=== PATIENT | male | born 1975 | race Caucasian/White ===

== ENCOUNTER 2017-06-12 14:55 | Outpatient (CLI) | payer MEDICAID ==
[2017-06-12 19:18] LABS: BASOPHILS % (AUTO) 0.5 %; EOSINOPHILS % (AUTO) 2.4 %; HGB - HEMOGLOBIN 16.8 g/dL (14.0-18.0); LYMPHOCYTES % (AUTO) 22.7 %; MEAN CORPUSCULAR HEMOGLOBIN 31.3 pg (27.0-31.0); MEAN CORPUSCULAR VOLUME 92.1 fL (80.0-94.0); MEAN PLATELET VOLUME 10.5 fL (7.4-11.4); MONOCYTES % (AUTO) 6.7 %; NEUTROPHILS % (AUTO) 67.7 %; PLT - PLATELET COUNT 214 10^3/uL (130-450); RED BLOOD COUNT 5.36 10^6/uL (4.70-6.10); RED CELL DISTRIBUTION WIDTH 14.5 % (12.0-15.0); WHITE BLOOD COUNT 10.2 x10^3/uL (4.8-10.8)
[2017-06-12 19:23] LABS: ALBUMIN 4.2 g/dL (3.2-5.5); ALBUMIN/GLOBULIN RATIO 1.1 (1.0-2.2); ALKALINE PHOSPHATASE 64 IU/L (42-121); ALT ALANINE AMINOTRANSFERASE 65 IU/L (10-60); AST ASPARTATE AMINOTRANSFERASE 34 IU/L (10-42); BILIRUBIN,TOTAL 0.5 mg/dL (0.2-1.0); BUN - BLOOD UREA NITROGEN 15 mg/dL (6-20); CALCIUM 8.8 mg/dL (8.5-10.3); CARBON DIOXIDE - CO2 25 mmol/L (21-32); CHLORIDE 102 mmol/L (101-111); CHOL/HDL RATIO 5.1 (<5.0); CHOLESTEROL 107 mg/dL; GFR - MDRD 82 (>89); GLUCOSE 145 mg/dL (70-100); HDL CHOLESTEROL 21 mg/dL; LDL CHOLESTEROL,CALCULATED 39 mg/dL; LDL/HDL RATIO 1.9 (<3.6); SODIUM 135 mmol/L (135-145); TOTAL PROTEIN 7.9 g/dL (6.7-8.2); VLDL CHOLESTEROL 47 mg/dL
[2017-06-12 19:25] LABS: ABNORMAL LYMPHS % (MANUAL) 0 %
[2017-06-12 19:28] LABS: THYROID STIMULATING HORMONE 18.71 uIU/mL (0.34-5.60)
[2017-06-12 20:15] LABS: BAND NEUTROPHILS % (MANUAL) 7 %; DIFFERENTIAL COMMENT MANUAL DIFFERENTIAL; EOSINOPHILS # (MANUAL) 0.3 10^3/uL (0-0.7); LYMPHOCYTES # (MANUAL) 2.6 10^3/uL (1.5-3.5); LYMPHOCYTES % (MANUAL) 24 %; NEUTROPHILS # (MANUAL) 7.3 10^3/uL (1.5-6.6); NEUTROPHILS % (MANUAL) 65 %; PLATELET ESTIMATE, MANUAL NORMAL (130-450,000) (NORMAL); PLATELET MORPHOLOGY NORMAL APPEARANCE (NORMAL); RBC MORPHOLOGY (MULTIPLE) NORMAL APPEARANCE (NORMAL)
[2017-06-12 20:18] LABS: FREE T4 (FREE THYROXINE) 0.63 ng/dL (0.58-1.64)
== END 2017-06-12 14:56 | disposition home or self-care (01) ==
LOC: LAB.N 14:55
PROVIDERS: ATTEND Nurse Practitioner Gerontology
DX: Z13.9 Encounter for screening, unspecified (principal)
CPT/HCPCS: 36415; 80053; 80061; 83721; 84439; 84443; 85025

== ENCOUNTER 2017-07-17 11:31 | Outpatient (CLI) | payer MEDICAID ==
[2017-07-17 19:39] LABS: PSA FREE 0.22 ng/mL (0.16-2.81)
[2017-07-17 19:41] LABS: PSA TOTAL 0.61 ng/mL (0.000-2.000)
== END 2017-07-17 11:32 ==
LOC: LAB.N 11:31
PROVIDERS: ATTEND Nurse Practitioner Gerontology
DX: E87.6 Hypokalemia (principal); Z12.5 Encounter for screening for malignant neoplasm of prostate
CPT/HCPCS: 36415; 84132; 84154

== ENCOUNTER 2023-11-06 14:41 | Outpatient (CLI) | payer MEDICAID ==
--- NOTE | 2023-11-06 16:16 | Ultrasound Report ---
PROCEDURE: Testicle INDICATIONS: TESTICULAR PAIN TECHNIQUE: Real-time scanning was performed of the scrotum and testicles, with image documentation. Color and p ulse Doppler interrogation was performed of both testicles. COMPARISON: None. FINDINGS: Right: Testicle is normal in size at 4.7 x 3.2 x 4.1 cm, and homogenous in echotexture. Epididymis is normal in overall size and morphology. Small hydrocele. No varicoceles. Overlying scrotal skin i s mildly increased in thickness. Left: Testicle is normal in size at 5.1 x 2.0 x 3.1 cm, and homogeneous in echotexture. Epididymis is normal in overall size and morphology. No hydrocele. No varicoceles. Overlying scrotal skin is n ormal in thickness. Doppler: Color and pulse Doppler demonstrate normal and symmetric arterial flow in both testicles. IMPRESSION: 1. Mild thickening of the wall of the right hemiscrotum. 2. No testicular torsion, testicular mass, epididymitis, or orchitis. Reviewed by: Doug Feliciano MD on 11/06/2023 4:15 PM PDT Approved by: Doug Feliciano MD on 11/06/2023 4:15 PM PDT Station ID: [id number]
== END 2023-11-06 14:42 | disposition home or self-care (01) ==
LOC: DI 14:41
PROVIDERS: ATTEND Nurse Practitioner Family
DX: N50.811 Right testicular pain (principal); N50.9 Disorder of male genital organs, unspecified

== ENCOUNTER 2024-01-11 10:52 | Outpatient (CLI) | payer MEDICAID ==
--- NOTE | 2024-01-11 15:02 | XRAY Report ---
PROCEDURE: Elbow 1-2V RT INDICATIONS: PAIN IN RIGHT ELBOW TECHNIQUE: 3 views of the elbow were acquired. COMPARISON: None. FINDINGS: Bones: No fractures or dislocations. No suspicious bony lesions. Soft tissues: Moderate effusion. No suspicious soft tissue calcifications or masses. IMPRESSION: No acute bony abnormality. Moderate elbow joint effusion. Internal derangement is not excluded. Reviewed by: Vipin Cabello MD on 01/11/2024 3:01 PM PDT Approved by: Vipin Cabello MD on 01/11/2024 3:01 PM PDT Station ID: [id number]
== END 2024-01-11 23:59 | disposition home or self-care (01) ==
LOC: DI.N 10:52
PROVIDERS: ATTEND Physician Assistant Medical
DX: M25.421 Effusion, right elbow (principal); M25.521 Pain in right elbow